=== PATIENT | female | born 1970 | race Caucasian/White ===

== ENCOUNTER 2021-09-20 21:25 | Emergency (ER) | payer MEDICAID, MEDICARE ==
[~2021-09-20] VITALS: Ht 152.4 cm; Wt 150.0 kg
[2021-09-20 21:27] VITALS: BP 192/122
== END 2021-09-20 23:37 | disposition home or self-care (01) ==
LOC: M ED 21:25
DX: H92.01 Otalgia, right ear (principal); F17.200 Nicotine dependence, unspecified, uncomplicated; Z91.018 Allergy to other foods; Z88.8 Allergy status to other drugs, medicaments and biological substances

== ENCOUNTER 2024-06-14 10:55 | Emergency (ER) | payer MEDICARE ==
[~2024-06-14] VITALS: Ht 149.9 cm; Wt 66.2 kg
[2024-06-14 11:06] VITALS: BP 148/98; TEMP 98.1; O2SAT 98
[2024-06-14] MEDS ORDERED: IBUP200T46 PO (11:21)
[2024-06-14] MEDS ORDERED: ISOVUE-370 76% 100ML VIAL As Ordered ONE (15:12)
[2024-06-14] MEDS ORDERED: NS (Normal Saline) 0.9% 1,000 ML IV ONE (15:15)
== END 2024-06-14 15:41 | disposition home or self-care (01) ==
LOC: M ED 10:55 → EDBD 10:55 → M ED 15:41
DX: M89.8X8 Other specified disorders of bone, other site (principal); F43.10 Post-traumatic stress disorder, unspecified; Z88.8 Allergy status to other drugs, medicaments and biological substances; Z91.018 Allergy to other foods; Z79.1 Long term (current) use of non-steroidal anti-inflammatories (NSAID)